=== PATIENT | male | born 1975 | race Caucasian/White ===

== ENCOUNTER 2020-08-12 12:18 | Emergency (ER) | payer BC, SELFPAY ==
[2020-08-12 12:23] VITALS: BP 147/95; PULSE 92; RESP 20; TEMP 36.1; O2SAT 96; BMI 38.7
--- NOTE | 2020-08-12 12:36 | RAD_ITS ---
STUDY: X-RAY - LEFT FOOT CLINICAL: Male, 45 years old. left foot pain TECHNIQUE: 3 view(s) of the foot. COMPARISON: None. FINDINGS: Normal talus, calcaneus, and tarsal bones. Normal visualized subtalar, talonavicular, calcaneocuboid, tarsal and tarsometatarsal articulations. Normal metatarsi. Normal metatarsophalangeal joint of the great toe. Normal tibial and fibular sesamoid bones. Normal interphalangeal joint of the great toe. Normal phalanges of the great toe. Normal second through fifth metatarsophalangeal joints. Normal interphalangeal joints and phalanges of the lesser toes. The soft tissue structures are unremarkable. RAD/Foot min 3 Views IMPRESSION: Normal x-ray examination of the foot. Electronically Signed: Romel Luo MD at 13:15 EST Tel , Service support ,
--- NOTE | 2020-08-12 12:42 | ED.DCSUM_ITS ---
- ER Visit Summary Date of Service: 08/12/20 Chief Complaint: Left foot injury and pain History of Present Illness: The patient is a 45 M that has no history of reflux and high cholesterol. Patient states that he rolled his ankle on the 13th landed awkwardly on his left foot and since that time has had foot pain. The ankle since resolved. He is able to walk on it but it is uncomfortable. He denies any prior history of surgery to the left foot or ankle. No other complaints or injuries. He has not had it evaluated till the day and this is happened about 16 days ago. Physical Examination: Rere male no acute distress accompanied by his . Vital signs stable afebrile. HEENT exam unremarkable. Neck nontender. Lungs clear to auscultation bilaterally. Heart regular rhythm no murmur. Chest wall nontender. Abdomen soft nontender. Pelvic girdle intact. 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 Right lower extremity unremarkable. Left hip, thigh, knee, lower leg nontender. Normal range of motion. Left ankle nontender normal dorsi plantarflexion. DP pulse intact. He has tenderness mild swelling to the top of his foot along the second third and fourth metatarsals. No gross bony deformity. Able to wiggle his toes. Normal touch sensation. Skin intact. Achilles tendon intact. Neurologic exam normal. Test Results: Left foot x-ray 3 views interpreted by myself shows no acute DE. No fracture or dislocation. Also read by the radiologist who agrees. I went over the x-rays with the patient. Emergency Department Course and Treatment: Patient with a left foot injury pain and swelling for about 2 weeks. X-ray being obtained. Repeat exam doing well at 1522. Discharge home with postop shoe. Treatment Plan: Ice and elevate. Tylenol Motrin for pain. And swelling. Postop shoe. Follow-up with Dr. Carlos Gastelum if not improving. Disposition: discharge Impression: Acute left foot sprain This note was generated with [employer] dictation software. It may contain incorrect words, spelling, and punctuation that were not noted in review of the chart prior to signing ED Disposition - Plan for ED Patient: Referrals: Care Physician,No Primary [Primary Care Provider] -
--- NOTE | 2020-08-12 15:24 | ED.DEP ---
ED Disposition - Plan for ED Patient: Disposition: Home or Assisted Living Instructions: ED Foot Sprain Referrals: Nish Gastelum DPM [STAFF PHYSICIAN] - 3-5 Days if not improving Additional Instructions: Ice and elevate your foot. Motrin for pain and swelling. Postop shoe to help cushion the blow to walk. Not improving follow-up with a local otr owner operator Dr. Carlos Gastelum for further evaluation.
[2020-08-12 15:33] VITALS: RESP 16
== END 2020-08-12 15:34 | disposition home or self-care (01) ==
PROVIDERS: Emergency Provider Emergency Medicine
DX: S93.602A Unspecified sprain of left foot, initial encounter (principal); X50.1XXA Overexertion from prolonged static or awkward postures, initial encounter; Y93.9 Activity, unspecified; Y92.9 Unspecified place or not applicable; Y99.9 Unspecified external cause status
CPT/HCPCS: 73630; 99282

== ENCOUNTER 2023-03-02 21:18 | Emergency (ER) | payer BC, SELFPAY ==
[2023-03-02 21:20] VITALS: BP 141/93; PULSE 101; RESP 18; TEMP 36.1; O2SAT 96; BMI 37.5
[2023-03-02 21:21] VITALS: BP 141/93; PULSE 101; RESP 18; TEMP 36.1; O2SAT 96
--- NOTE | 2023-03-02 21:59 | EKG12_ITS ---
Test Reason : CP Blood Pressure : / mmHG Vent. Rate : 093 BPM Atrial Rate : 093 BPM P-R Int : 162 ms QRS Dur : 092 ms QT Int : 348 ms P-R-T Axes : 051 088 026 degrees QTc Int : 432 ms Normal sinus rhythm Incomplete right bundle branch block Borderline ECG Confirmed by KULDIP STEPHENS, ROBINSON ([id number]), editor greeting card LUCA JIMENEZ ([id number]) on 03/04/2023 2:02:25 PM Referred By: Confirmed By:ROBINSON CHRISTIANSEN MD
[2023-03-02 22:04] VITALS: O2SAT 97
--- NOTE | 2023-03-02 22:05 | RAD_ITS ---
STUDY: X-RAY CHEST REASON FOR EXAM: Male, 48 years old. chest pain TECHNIQUE: Single AP portable view of the chest. COMPARISON: None. FINDINGS: Trace left basilar atelectasis, otherwise the lungs are clear and expanded. There is no demonstrated pleural abnormality. Normal size heart. Normal mediastinum and franny. Normal visualized pulmonary arteries. Normal visualized aortic arch and descending thoracic aorta. Normal visualized thoracic spine. Normal visualized ribs, clavicles, and shoulders. There is no demonstrated abnormality of the visualized soft tissue structures of the upper abdomen. RAD/Chest 1 View (Portable) IMPRESSION: Minimal left basilar atelectasis, otherwise normal x-ray examination of the chest. Electronically Signed: Barbie Gentile MD at 22:23 EDT ,
[2023-03-02 22:12] LABS: Absolute Lymphocyte Count 2.53 X10^3/uL (0.83-4.51); Absolute Neutrophil Count 6.2 X10^3/uL (2.0-7.7); Basophil# 0.04 X10^3/uL; Basophil% 0.4 % (0-1); Eosinophil# 0.11 X10^3/uL; Eosinophils% 1.2 % (0-5); Hemoglobin 17.4 g/dL (13.0-16.5); Lymphocyte # 2.53 X10^3/ul (0.83-4.51); Lymphocyte % 26.8 % (19-41); Mean Corp Hgb Conc 33.5 g/dL (32-36); Mean Corpuscular Hgb 30.2 pg (27.0-32.0); Mean Corpuscular Volume 90.3 fL (80-94); Mean Platelet Vol. 11.6 fl (6.2-12.0); Monocyte# 0.51 X10^3/uL; Monocyte% 5.4 % (0-10); NRBC Flagged by Analyzer 0 % (0-5); Neutrophil # 6.18 X10^3/uL (2.7-7.7); Neutrophil % 65.6 % (47-70); Platelet Count 216 K/mm3 (150-450); RBC Distribution Width CV 12.5 % (11.6-14.6); RBC Distribution Width SD 41.1 fl (35.1-43.9); Red Blood Count 5.76 M/mm3 (4.6-6.2); White Blood Count 9.4 K/mm3 (4.4-11.0)
--- NOTE | 2023-03-02 22:15 | ED.VIS.CHEST ---
HPI History of Present Illness Chief Complaint: Chest Pain Informant: patient Onset/Context/Timing Onset: Yesterday Activity at onset: gradual Timing: Continuous Quality: Positive for Tightness Location: Left Parasternal Worsened By: Exertion Relieved By: Rest Associated Symptoms: Positive for Lightheadedness and Palpitations; Negative for Nausea, Vomiting, Diaphoresis, Dyspnea, Cough, Fever or Acid Reflux Narrative Narrative: Patient presents with chest pain that began yesterday. Patient states it is gradually gotten worse. Patient states his pain is worse with exertion and certain movements. Patient describes his pain as a tightness. Patient states it is over the left parasternal area. Patient denies any radiation of the pain. Patient states his pain gets better with rest. Patient denies any nausea or vomiting. Patient denies any diaphoresis. Patient denies any shortness of breath or cough. Patient admits to some lightheadedness and occasional palpitations. Patient denies any fevers or chills. CVD Risk Factors: Negative for Hypertension, Diabetes, Hypercholesterolemia, Family History 1' </=55 or Smoking PE Risk Factors: Negative for Recent Travel/Surgery, Recent Immobilization, Prior DVT or PE, Cancer or OCP + Smoking + >/=35 PFSH PFSH Medical History no medical history no medical history Home Medications tadalafil 5 mg tablet (Cialis) 10 mg PO DAILY PRN sexual activity 03/02/23 [History Last Taken Unknown] Allergy/AdvReac Type Severity Reaction Status Date / Time No Known Allergies Allergy Verified 03/02/23 22:20 Surgical History (Updated 03/02/23 @ 22:[address] Miguel Denis DO) History of repair of anterior cruciate ligament of left knee History of repair of anterior cruciate ligament of right knee Social History Smoking Status: Never smoker ROS ROS ED Constitutional Constitutional ED: Denies chills or fever(s) Eyes Eyes: Denies blurry vision or change in vision ENT ENT ED: Denies rhinorrhea or sore throat Cardiovascular Cardiovascular: Reports chest pain and palpitations Respiratory/Chest Respiratory/Chest: Denies cough or dyspnea Gastrointestinal Gastrointestinal: Denies abdominal pain, nausea or vomiting Genitourinary Genitourinary ED: Denies dysuria or hematuria Musculoskeletal Musculoskeletal: Denies back pain or neck pain Integumentary Denies abscess or rash Neurologic Neurologic: Denies headache(s) or weakness Allergic/Immunologic Allergic/Immunologic ED: Denies mouth swelling or urticaria EXAM Physical Exam Const Vital Signs: 03/02/23 21:20 03/02/23 21:21 03/02/23 21:31 Temperature 97.0 F L 97.0 F L Temperature Source Temporal Temporal Pulse Rate 101 H 101 H Respiratory Rate 18 18 Respiratory Effort Normal Respiratory Pattern Normal Blood Pressure 141/93 H 141/93 H Blood Pressure Mean 109 109 Pulse Ox 96 96 Oxygen Delivery Method Room Air Room Air 03/02/23 22:04 03/02/23 22:19 03/02/23 23:00 Temperature Temperature Source Pulse Rate 94 91 Respiratory Rate 16 16 Respiratory Effort Respiratory Pattern Blood Pressure 106/84 H 110/89 H Blood Pressure Mean 91 96 Pulse Ox 97 97 97 Oxygen Delivery Method Room Air Room Air Room Air Positive well nourished, well developed and obese General Appearance ED: well developed and NAD Nutritional Appearance: obese HEENT normocephalic and atraumatic Eyes PERRL and EOMs intact bilaterally Neck supple and no JVD Resp normal respiratory effort and clear to auscultation bilaterally Effort and Inspection: Negative for respiratory distress Cardio regular rate and regular rhythm GI normal to inspection, nondistended, normoactive bowel sounds, soft to palpation, non-tender and non-distended Extremity normal to inspection General Extremety ED: Negative for edema or tenderness General Extremity: Negative for edema Neuro oriented x3, CN's II-XII intact bilaterally and no sensory deficits noted Sensorium / Orientation: awake and alert Motor Exam: strength 5/5 throughout Psych mental status grossly normal Heart Score History: Moderately Suspicious ECG: Normal Age: >45 - <65 years Risk Factors: No Risk Factors Troponin: </= Normal Limit Score: 2 MDM MDM MDM Narrative Medical decision making narrative: Differential diagnosis includes cardiac dysrhythmia, cardiac ischemia, pneumonia, pneumothorax, musculoskeletal pain, and anxiety. Patient has a Wells score less than 3. Patient is PERC negative. I do not feel this is from a pulmonary embolism. EKG will be obtained to assess for cardiac dysrhythmia and cardiac ischemia. Chest x-ray will be obtained to assess for pneumonia and pneumothorax. CBC will be obtained to assess for leukocytosis and anemia. Basic metabolic profile will be obtained to assess for electrolyte abnormality and renal function. High-sensitivity troponin will be obtained to assess for cardiac ischemia. 2-hour repeat high-sensitivity troponin will be obtained to assess for ongoing cardiac ischemia. Lab Data Attestation: I reviewed the patient's lab results. Lab results narrative: CBC was reviewed and was within normal limits. Basic metabolic profile was reviewed and was essentially within normal limits. Initial high-sensitivity troponin was reviewed and was normal at 8. Labs: Laboratory Results - last 24 hr 03/02/23 21:30 WBC 9.4 RBC 5.76 Hgb 17.4 H Hct 52.0 MCV 90.3 MCH 30.2 MCHC 33.5 RDW Std Deviation 41.1 RDW Coeff of Pati 12.5 Plt Count 216 MPV 11.6 Immature Gran % (Auto) 0.600 Neut % (Auto) 65.6 Lymph % (Auto) 26.8 [place] % (Auto) 5.4 Eos % (Auto) 1.2 Baso % (Auto) 0.4 Absolute Neuts (auto) 6.2 Absolute Lymphs (auto) 2.53 Nucleated RBC % 0 Sodium 139 Potassium 3.8 Chloride 109 H Carbon Dioxide 26.0 Anion Gap 4 L BUN 10 Creatinine 1.15 Estim Creat Clear Calc 81.11 Est GFR (MDRD) Af Amer 87 Est GFR (MDRD) Non-Af 72 BUN/Creatinine Ratio 8.7 L Glucose 117 H Calcium 8.9 Troponin I High Sens 8 Radiography Chest X-Ray - ED: 1 View, Read by ED Physician, Read by Radiologist and No Acute Disease Diagnostic Testing: Clinical Impression(s) from Imaging Studies Chest X-Ray 03/02/23 22:05 IMPRESSION: Minimal left basilar atelectasis, otherwise normal x-ray examination of the chest. Electronically Signed: Barbie Gentile MD at 22:23 EDT , EKG Initial EKG: Attestation: I personally reviewed and interpreted this EKG as follows: Interpretation: Sinus Rhythm (93) and No Acute Injury Pattern Comments: EKG was obtained. On my independent interpretation, it showed a normal sinus rhythm with a rate of 93. CA interval, QRS interval, and QTc intervals were all normal. [place] was normal. There are no acute ST or T wave changes. Prior EKG tracings: not available for review Prior: No Prior Treatment and Re-Evaluation :: Patient was given aspirin. Patient was not given any nitroglycerin due to him taking Cialis. Patient was advised of his findings. Patient is feeling better on reevaluation. Patient has a HEART score of 2. Patient was advised that he has a 2% risk for acute cardiac event over the next 6 weeks. Patient was advised that if the repeat troponin is unchanged, his risk for acute cardiac event over the next 6 weeks goes down to 1%. Patient does not want to stay in the hospital. Patient will be discharged home if the repeat troponin is normal and the delta is less than 20. Patient was instructed to follow-up with his primary care physician in 5 to 7 days. Patient was instructed return if worse in any way. Patient understood and was agreeable with the plan. All questions were answered. Care of the patient will be turned over to the oncoming physician pending repeat troponin. Discharge Plan Triage Chief Complaint: Chest Pain ED Provider: Migeul Denis Dx/Rx/DC Orders Clinical Impression: Chest pain of uncertain etiology, Elevated blood pressure reading without diagnosis of hypertension Instructions: ED Chest Pain, Uncertain Cause Prescriptions: No Action tadalafil [Cialis] 5 mg tablet 10 mg PO DAILY PRN (Reason: sexual activity) Rx Instructions: administer approximately 30min before sexual activity; do not use more than 1 dose per 24hrs Primary Care Provider: Care Physician,No Primary Referrals: Miguel Palma MD [Med Staff - Tissue Technician] - 5-7 Days Care Physician,No Primary [Primary Care Provider] - Disposition Disposition: Home, Self Care
[2023-03-02 22:19] VITALS: BP 106/84; PULSE 94; RESP 16; O2SAT 97
[2023-03-02] MEDS: Aspirin 81 MG TAB.CHEW 324 MG PO (22:20)
[2023-03-02 22:31] LABS: Anion Gap 4 (5-15); BUN 10 mg/dL (7-18); BUN/Creat Ratio 8.7 RATIO (10-20); Calcium,Total 8.9 mg/dL (8.5-10.1); Chloride 109 mmol/L (98-107); Creatinine, Serum 1.15 mg/dL (0.70-1.30); EST Glomerular Filtration Rate 72 mL/min (>60); Est Glom Filt Rate - Afr Amer 87 mL/min (>60); Estimated Creatinine Clearance 81.11 ml/min; Glucose 117 mg/dL (74-106); Potassium 3.8 mmol/L (3.5-5.1); Sodium Level 139 mmol/L (136-145); Troponin-I HS (w/2H Reflex) 8 pg/mL (3.0-78.0)
[2023-03-02 23:00] VITALS: BP 110/89; PULSE 91; RESP 16; O2SAT 97
[2023-03-03] VITALS: BP 129/74; PULSE 77; RESP 16; O2SAT 98
[2023-03-03 00:07] LABS: Reflex Troponin-HS? (from REC) Y
[2023-03-03 00:30] LABS: Troponin-I HS 8 pg/mL (3.0-78.0)
== END 2023-03-03 00:51 | disposition home or self-care (01) ==
PROVIDERS: Emergency Provider Emergency Medicine; Visit Provider Emergency Medicine
DX: R07.9 Chest pain, unspecified (principal); R03.0 Elevated blood-pressure reading, without diagnosis of hypertension; E66.9 Obesity, unspecified
CPT/HCPCS: 71045; 80048; 84484; 85025; 93005; 99285; A4216